=== PATIENT | female | born 2000 ===

== ENCOUNTER 2022-06-23 00:02 | Emergency (ER) | payer OTHER ==
[~2022-06-23] VITALS: Ht 175.3 cm; Wt 102.1 kg
[2022-06-23 00:05] VITALS: BP 132/88; TEMP 98.3
[2022-06-23] MEDS ORDERED: AMOXICILLIN 8751 TAB PO (00:38)
[2022-06-23 00:49] VITALS: PULSE 75
== END 2022-06-23 00:50 | disposition home or self-care (01) ==
LOC: COL.ER 00:02
DX: S61.452A Open bite of left hand, initial encounter (principal); S51.852A Open bite of left forearm, initial encounter; S61.250A Open bite of right index finger without damage to nail, initial encounter; S61.256A Open bite of right little finger without damage to nail, initial encounter; Z23 Encounter for immunization; W54.0XXA Bitten by dog, initial encounter